=== PATIENT | male | born 1940 | race Caucasian/White ===

== ENCOUNTER 2017-07-12 21:09 | Inpatient (IN) | payer MEDICARE ==
[~2017-07-12] VITALS: Ht 180.3 cm; Wt 104.1 kg
--- NOTE | 2017-07-12 21:19 | PD ---
HPI Chief Complaint: sob Time Seen by Provider: 21:18 Travel History International Travel<30 days: No Contact w/Intl Traveler<30days: No Traveled to known affect area: No History of Present Illness HPI Shortness shortness of breath over the last 2 days, where he was taking his 's penicillin instead of what he thought was Robitussin. Over the last 2 days he has not noted a rash on his body, no hives, no swelling to his lip or tongue. However he has been feeling short of breath, wheezing and a dry cough. No alleviating or aggravating factors. When patient came in was in room air and had a pulse ox of 79% on room air patient was fractured back to her room immediately... Patient believes that the penicillin that he has been taken is what is responsible for his symptoms of shortness of breath. However when I asked the patient if he had any shortness of breath or cough prior to 2 days ago he said yes which was the reason why he was taking or attempting to take Robitussin for. 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, pulmonary hypertension PFSH Social History Tobacco Use: No Allergies-Medications (Allergen,Severity, Reaction): Coded Allergies: penicillin G (Verified Allergy, Severe, Angioedema, 07/12/17) Reported Meds & Prescriptions Reported Meds & Active Scripts Active Reported Flonase Nasal [place] (Fluticasone Nasal [place]) 50 Mcg/Act [place] 50 Mcg EACH NARE BID Aspirin 81 Mg Chew 81 Mg CHEW DAILY Ventolin Hfa 18 GM Inh (Albuterol Sulfate) 90 Mcg/Act Aer 1 Puff INH Q4H PRN Spiriva [place] (Tiotropium Inh) 18 Mcg Cap 18 Mcg INH DAILY 1 capsule = 18 mcg Coreg (Carvedilol) 12.5 Mg Tab 10 Mg PO BID Lipitor (Atorvastatin Calcium) 40 Mg Tab 40 Mg PO HS Plavix (Clopidogrel Bisulfate) 75 Mg Tab 75 Mg PO DAILY Review of Systems General / Constitutional: No: Fever Eyes: No: Visual changes HENT: No: Headaches Cardiovascular: No: Chest Pain or Discomfort Respiratory: Positive: Cough, Shortness of Breath, Wheezing Gastrointestinal: No: Abdominal Pain Genitourinary: No: Dysuria Musculoskeletal: No: Pain Skin: No Rash Neurologic: No: Weakness Psychiatric: No: Depression Endocrine: No: Polydipsia Hematologic/Lymphatic: No: Easy Bruising Physical Exam Narrative GENERAL: SKIN: Warm and dry. HEAD: Atraumatic. Normocephalic. EYES: Pupils equal and round. No scleral icterus. No injection or drainage. ENT: No nasal bleeding or discharge. Mucous membranes pink and moist. NECK: Trachea midline. No JVD. CARDIOVASCULAR: Regular rate and rhythm. RESPIRATORY: No accessory muscle use. Scattered wheezing throughout lung llamas , slightly decreased tidal volume bilaterally GASTROINTESTINAL: Abdomen soft, non-tender, nondistended. MUSCULOSKELETAL: Extremities without clubbing, cyanosis, or edema. No obvious deformities. NEUROLOGICAL: Awake and alert. No obvious cranial nerve deficits. Motor grossly within normal limits. Five out of 5 muscle strength in the arms and legs. Normal speech. PSYCHIATRIC: Appropriate mood and affect; insight and judgment normal. Data Data Last Documented VS Vital Signs Date Time Temp Pulse Resp B/P (MAP) Pulse Ox O2 Delivery O2 Flow Rate FiO2 07/13/17 00:00 97.0 80 15 134/67 (89) 94 07/12/17 23:30 Nasal Cannula 2.00 Orders Orders Electrocardiogram (07/12/17 21:35) B-Type Natriuretic Peptide (07/12/17 21:35) Ckmb (Isoenzyme) Profile (07/12/17 21:35) Complete Blood Count With Diff (07/12/17 21:35) Comprehensive Metabolic Panel (07/12/17 21:35) Prothrombin Time / Inr (Pt) (07/12/17 21:35) Act Partial Throm Time (Ptt) (07/12/17 21:35) Troponin I (07/12/17 21:35) Lipase (07/12/17 21:35) Chest, Single Ap (07/12/17 21:35) Ecg Monitoring (07/12/17 21:35) Bilateral Bp Monitoring (07/12/17 21:35) Iv Access Insert/Monitor (07/12/17 21:35) Oximetry (07/12/17 21:35) Oxygen Administration (07/12/17 21:35) Sodium Chloride 0.9% Flush (Ns Flush) (07/12/17 21:45) Methylprednisolone So Succ Inj (Solumedr (07/12/17 21:45) Albuterol Neb (Albuterol Neb) (07/12/17 21:45) Magnesium Sulfate 1 Gm Premix (Magnesium (07/12/17 21:45) Magnesium (Mg) (07/12/17 21:40) CKMB (07/12/17 21:40) CKMB% (07/12/17 21:40) Azithromycin Inj (Zithromax Inj) (07/12/17 22:45) Admit Order (Ed Use Only) (07/13/17 00:25) Labs Laboratory Tests Test 07/12/17 21:40 White Blood Count 8.3 TH/MM3 Red Blood Count 4.50 MIL/MM3 Hemoglobin 14.4 GM/DL Hematocrit 43.7 % Mean Corpuscular Volume 97.0 FL Mean Corpuscular Hemoglobin 32.0 PG Mean Corpuscular Hemoglobin Concent 33.0 % Red Cell Distribution Width 14.8 % Platelet Count 204 TH/MM3 Mean Platelet Volume 7.2 FL Neutrophils (%) (Auto) 64.1 % Lymphocytes (%) (Auto) 21.4 % Monocytes (%) (Auto) 12.1 % Eosinophils (%) (Auto) 2.0 % Basophils (%) (Auto) 0.4 % Neutrophils # (Auto) 5.3 TH/MM3 Lymphocytes # (Auto) 1.8 TH/MM3 Monocytes # (Auto) 1.0 TH/MM3 Eosinophils # (Auto) 0.2 TH/MM3 Basophils # (Auto) 0.0 TH/MM3 CBC Comment DIFF FINAL Differential Comment Prothrombin Time 10.7 SEC Prothromb Time International Ratio 1.1 RATIO Activated Partial Thromboplast Time 30.5 SEC Blood Urea Nitrogen 13 MG/DL Creatinine 0.87 MG/DL Random Glucose 92 MG/DL Total Protein 7.9 GM/DL Albumin 3.6 GM/DL Calcium Level 9.1 MG/DL Magnesium Level 1.9 MG/DL Alkaline Phosphatase 66 U/L Aspartate Amino Transf (AST/SGOT) 39 U/L Alanine Aminotransferase (ALT/SGPT) 37 U/L Total Bilirubin 0.7 MG/DL Sodium Level 133 MEQ/L Potassium Level 4.6 MEQ/L Chloride Level 95 MEQ/L Carbon Dioxide Level 35.2 MEQ/L Anion Gap 3 MEQ/L Estimat Glomerular Filtration Rate 86 ML/MIN Total Creatine Kinase 301 U/L Creatine Kinase MB 8.3 NG/ML Troponin I LESS THAN 0.02 NG/ML B-Type Natriuretic Peptide 174 PG/ML Lipase 107 U/L MDM Medical Decision Making Medical Screen Exam Complete: Yes Emergency Medical Condition: Yes Medical Record Reviewed: Yes Interpretation(s) EKG shows normal sinus rhythm, 77 bpm, occasional PVC, right bundle branch block pattern, negative SGARBOSSA'S criteria, Additionally on 2 L of patient's pulse ox with an excellent pleth wave now reads 96-98 which is within normal limits, believe that the severely low pulse ox out in triage was secondary to the patient straining himself by walking into triage without his supplemental oxygen. Differential Diagnosis Based on the historical facts the patient is unlikely to be having an allergic reaction, and rather more likely a progressive COPD exacerbation with a possibility of pneumonia or infection. The patient will be treated with Solu- Medrol, albuterol treatments, magnesium IV, and azithromycin IV, and obtain a chest x-ray if it does appear to have an infiltrate the patient will be given some additional antibiotics empirically. Narrative Course No leukocytosis, no anemia, normal platelet count, no left shift Initial ABG shows hypercapnic respiratory failure with respiratory acidosis Electrolytes are all within normal limits, normal kidney liver and pancreatic functions. First set of cardiac enzymes negative Beta natruretic peptide not significant at 174 Negative d-dimer Coagulation profile within normal limits Chest x-ray read as patchy bibasilar infiltrates per radiology report Critical Care Narrative CRITICAL CARE NOTE: With evaluation of the patient, labs, EKG, receipt of radiologic studies, administration of medications, reevaluation the patient and discussion of the patient with the admitting physicians, the total critical care time was [60] minutes. Time to perform other separately billable procedures was not included in the critical care time. Diagnosis Primary Impression: COPD with exacerbation Additional Impression: Hypoxemia Admitting Information Admitting Physician Requests: Fermín Boothe MD July 12, 2017 21:19
[2017-07-12 21:20] VITALS: BP 152/96; PULSE 77; RESP 26; O2SAT 94
[2017-07-12 21:27] VITALS: BP 166/104; PULSE 87; RESP 28; TEMP 98.5; O2SAT 82
[2017-07-12 21:42] VITALS: O2SAT 95
[2017-07-12] MEDS ORDERED: CARV12.5 PO (21:44)
[2017-07-12] MEDS ORDERED: PLAV75TA29 PO (21:44)
[2017-07-12] MEDS ORDERED: VENTAER INH (21:44)
[2017-07-12] MEDS ORDERED: ASPI-516 CHEW (21:44)
[2017-07-12] MEDS ORDERED: FLUT1SPR5 EACH NARE (21:44)
[2017-07-12] MEDS ORDERED: LIPI40TA PO (21:44)
[2017-07-12] MEDS ORDERED: SPIRCAP INH (21:44)
[2017-07-12] MEDS ORDERED: MAGNESIUM SULFATE 1 GM PREMIX 100 ML IV ONE (21:45)
[2017-07-12] MEDS ORDERED: methylPREDNISolone SOD SUCC 125 MG/2 ML VIAL IV PUSH ONE (21:45)
[2017-07-12] MEDS: RESP: ALBUTEROL 2.5 MG/3 ML NEB (SCH) INH (21:45)
[2017-07-12] MEDS ORDERED: SODIUM CHLORIDE 0.9% FLUSH 10 ML FLUSH IVF PRN (21:45)
[2017-07-12 21:53] VITALS: O2SAT 94
[2017-07-12 21:53] LABS: AUTOMATED NEUTROPHIL # 5.3 TH/MM3 (1.8-7.7); BASOPHIL % 0.4 % (0.0-2.0); EOSINOPHIL # 0.2 TH/MM3 (0-0.4); HEMATOCRIT 43.7 % (39.0-51.0); HEMOGLOBIN 14.4 GM/DL (13.0-17.0); LYMPH % 21.4 % (9.0-44.0); LYMPHOCYTE # 1.8 TH/MM3 (1.0-4.8); MEAN PLATELET VOLUME 7.2 FL (7.0-11.0); MONO % 12.1 % (0.0-8.0); NEUT % 64.1 % (16.0-70.0); PLATELET COUNT 204 TH/MM3 (150-450); RED CELL DISTRIBUTION WIDTH 14.8 % (11.6-17.2); WHITE BLOOD COUNT 8.3 TH/MM3 (4.0-11.0)
[2017-07-12 21:59] LABS: CHLORIDE 95 MEQ/L (98-107); SODIUM (NA) 133 MEQ/L (136-145)
[2017-07-12 22:03] LABS: ALBUMIN 3.6 GM/DL (3.4-5.0); BICARBONATE 35.2 MEQ/L (21.0-32.0); BLOOD UREA NITROGEN 13 MG/DL (7-18); CALCIUM 9.1 MG/DL (8.5-10.1); GLUCOSE,RANDOM 92 MG/DL (74-106)
[2017-07-12 22:04] LABS: INTERNATIONAL NORMALIZED RATIO 1.1 RATIO; PROTHROMBIN TIME - PATIENT 10.7 SEC (9.8-11.6)
[2017-07-12 22:06] LABS: ALT (GPT) 37 U/L (12-78); AST (GOT) 39 U/L (15-37); CREATININE 0.87 MG/DL (0.60-1.30); GLOMERULAR FILTRATION RATE 86 ML/MIN (>89)
[2017-07-12 22:07] LABS: MAGNESIUM 1.9 MG/DL (1.5-2.5); TOTAL BILIRUBIN ADULT 0.7 MG/DL (0.2-1.0); TOTAL PROTEIN 7.9 GM/DL (6.4-8.2)
[2017-07-12 22:09] LABS: ALKALINE PHOSPHATASE 66 U/L (45-117)
[2017-07-12 22:11] LABS: TROPONIN I LESS THAN 0.02 NG/ML (0.02-0.05)
[2017-07-12 22:20] VITALS: BP 137/82; PULSE 78; RESP 20; O2SAT 90
--- NOTE | 2017-07-12 22:29 | RADRPT ---
EXAM DATE: 07/12/2017 10:25 PM EDT AGE/SEX: 77 years / Male INDICATIONS: Shortness of breath. CLINICAL DATA: This is the patient's initial encounter. Patient reports that signs and symptoms have been present for 1 day and indicates a pain score of 0/10. MEDICAL/SURGICAL HISTORY: Cardiovascular disease. Chronic obstructive pulmonary disease. None. COMPARISON: No prior [facility] exams available for comparison. FINDINGS: Patchy infiltrates in the lower lungs bilaterally. Consolidation. The heart is normal in size. CONCLUSION: Patchy bibasilar infiltrates. Electronically signed by: Daquan Carrillo MD 07/12/2017 10:27 PM EDT
[2017-07-12] MEDS ORDERED: AZITHROMYCIN INJ 500 MG in SODIUM CHLOR 0.9% 250 ML INJ 250 ML IV ONE (22:45)
[2017-07-12 23:30] VITALS: BP 140/83; PULSE 80; RESP 20; O2SAT 90
[2017-07-13] VITALS (16 sets, daily range): BP systolic 127–142; BP diastolic 64–91; PULSE 60–86; RESP 10–20; TEMP 96.2–99.4; O2SAT 91–96
[2017-07-13] MEDS ORDERED: ACETAMINOPHEN 325 MG TAB PO PRN (00:30)
[2017-07-13] MEDS ORDERED: SENNOSIDES 8.6 MG TAB PO PRN (00:30)
[2017-07-13] MEDS ORDERED: MAGNESIUM HYDROXIDE SUSP 30 ML CUP PO PRN (00:30)
[2017-07-13] MEDS ORDERED: NALOXONE HCL 0.4 MG/ML AMP IV PUSH PRN (00:30)
[2017-07-13] MEDS ORDERED: BISACODYL 10 MG SUPP RECTAL PRN (00:30)
[2017-07-13] MEDS ORDERED: LACTULOSE SYRUP 20 GM/30 ML CUP PO PRN (00:30)
[2017-07-13] MEDS ORDERED: RESP: ALBUTEROL 2.5 MG/IPRATROPIUM 0.5 MG NEB (PRN) NEB ×2 (00:30→07:15)
[2017-07-13] MEDS ORDERED: SODIUM CHLORIDE 0.9% FLUSH 10 ML FLUSH IV FLUSH PRN (00:30)
[2017-07-13] MEDS: ENOXAPARIN SODIUM 40 MG/0.4 ML SYRINGE SQ SCH (01:04)
[2017-07-13] MEDS ORDERED: methylPREDNISolone SOD SUCC 40 MG/1 ML VIAL IV PUSH SCH (07:15)
[2017-07-13] MEDS: RESP: ALBUTEROL 2.5 MG/IPRATROPIUM 0.5 MG NEB (SCH) NEB ×5 (08:13→19:31)
[2017-07-13] MEDS: ASPIRIN 81 MG CHEW TAB CHEW SCH (08:59)
[2017-07-13] MEDS: CLOPIDOGREL 75 MG TAB PO SCH (08:59)
[2017-07-13] MEDS: LEVOFLOXACIN 750 MG TAB PO SCH (08:59)
[2017-07-13] MEDS: SODIUM CHLORIDE 0.9% FLUSH 10 ML FLUSH IV FLUSH SCH ×2 (09:00→21:58)
[2017-07-13] MEDS ORDERED: predniSONE 20 MG TAB PO SCH (09:00)
[2017-07-13] MEDS ORDERED: methylPREDNISolone SOD SUCC 125 MG/2 ML VIAL IV PUSH SCH ×2 (09:00→12:00)
[2017-07-13] MEDS: BUDESONIDE-FORMOTEROL 160/4.5 MCG INHALER INH SCH ×2 (10:15→22:11)
--- NOTE | 2017-07-13 10:16 | HHI.HP ---
HPI Service [facility] Primary Care Physician Non-Staff Admission Diagnosis COPD EXACERBATION WITH HYPOXEMIA Diagnoses: (1) Community acquired bacterial pneumonia (2) Hypoxemia (3) COPD with exacerbation Chief Complaint: Shortness of breath Travel History International Travel<30 Days: No Contact w/Intl Traveler <30 Da: No Traveled to Known Affected Are: No History of Present Illness 77-year-old male with a history of COPD, hypertension presented yesterday to the ED for evaluation of worsening symptom of shortness of breath times couple days associated with cough production's of yellow sputum over the past 2-3 days. However, patient denies any febrile episode. He was recently treated for sinus infection with a course of 5 days of antibiotics about a week ago. Patient was recently also treated for cough with Robitussin. However states he took his penicillin few days ago and may have suffered an allergic reaction to it leading to shortness of breath. Report chest pain with cough and deep inspiration. When patient initially presented to the ED, he was hypoxemic and placed on 2 L nasal cannula. Currently, patient is on 3 L of oxygen. Patient reports a previous history of tobacco, and quit 5 years ago. However he still smokes 1-2 cigars per day. He denies any GI bleed. Review of Systems Except as stated in HPI: all other systems reviewed are Neg Past Family Social History Past Medical History Coronary artery disease Obstructive sleep apnea COPD Hyperlipidemia Past Surgical History No previous surgery Reported Medications See EMR Allergies: Coded Allergies: penicillin G (Verified Allergy, Severe, Angioedema, 07/12/17) Family History Father from complication of lung and liver cancer Mother had CVA Social History Denies alcohol, illicit drug . Smokes 1-2 cigars per day Physical Exam Vital Signs Vital Signs Date Time Temp Pulse Resp B/P (MAP) Pulse Ox O2 Delivery O2 Flow Rate FiO2 07/13/17 08:17 94 Nasal Cannula 3.00 07/13/17 07:54 96.2 81 20 128/79 (95) 95 07/13/17 01:27 76 16 138/78 (98) 93 Nasal Cannula 4.00 5/25/18 00:30 72 18 139/91 (107) 91 Room Air 3.00 07/13/17 00:00 97.0 80 15 134/67 (89) 94 07/12/17 23:30 80 20 140/83 (102) 90 Nasal Cannula 2.00 07/12/17 22:20 78 20 137/82 (100) 90 07/12/17 21:53 94 Nasal Cannula 2.00 07/12/17 21:53 94 Nasal Cannula 2.00 07/12/17 21:42 95 Nasal Cannula 2.00 07/12/17 21:27 98.5 87 28 166/104 (124) 82 07/12/17 21:20 28 82 Room Air 07/12/17 21:20 77 26 152/96 (114) 94 Nasal Cannula 2.00 Physical Exam GENERAL: This is a well-nourished, well-developed patient, in no apparent distress. SKIN: No rashes, ecchymoses or lesions. Cool and dry. HEAD: Atraumatic. Normocephalic. No temporal or scalp tenderness. EYES: Pupils equal round and reactive. Extraocular motions intact. No scleral icterus. No injection or drainage. ENT: Nose without bleeding, purulent drainage or septal hematoma. Throat without erythema, tonsillar hypertrophy or exudate. Uvula midline. Airway patent. NECK: Trachea midline. No JVD or lymphadenopathy. Supple, nontender, no meningeal signs. CARDIOVASCULAR: Regular rate and rhythm without murmurs, gallops, or rubs. RESPIRATORY: Clear to auscultation. Breath sounds decrease bilaterally. No wheezes, rales, or rhonchi. GASTROINTESTINAL: Abdomen soft, non-tender, nondistended. No hepato-splenomegaly , or palpable masses. No guarding. MUSCULOSKELETAL: Extremities without clubbing, cyanosis, or edema. No joint tenderness, effusion, or edema noted. No calf tenderness. Negative Homans sign bilaterally. NEUROLOGICAL: Awake and alert. Cranial nerves II through XII intact. Motor and sensory grossly within normal limits. Five out of 5 muscle strength in all muscle groups. Normal speech. Laboratory Laboratory Tests Test 07/12/17 21:40 07/13/17 07:45 White Blood Count 8.3 Red Blood Count 4.50 Hemoglobin 14.4 Hematocrit 43.7 Mean Corpuscular Volume 97.0 Mean Corpuscular Hemoglobin 32.0 Mean Corpuscular Hemoglobin Concent 33.0 Red Cell Distribution Width 14.8 Platelet Count 204 Mean Platelet Volume 7.2 Neutrophils (%) (Auto) 64.1 Lymphocytes (%) (Auto) 21.4 Monocytes (%) (Auto) 12.1 Eosinophils (%) (Auto) 2.0 Basophils (%) (Auto) 0.4 Neutrophils # (Auto) 5.3 Lymphocytes # (Auto) 1.8 Monocytes # (Auto) 1.0 Eosinophils # (Auto) 0.2 Basophils # (Auto) 0.0 CBC Comment DIFF FINAL Differential Comment Prothrombin Time 10.7 Prothromb Time International Ratio 1.1 Activated Partial Thromboplast Time 30.5 Blood Urea Nitrogen 13 Creatinine 0.87 Random Glucose 92 Total Protein 7.9 Albumin 3.6 Calcium Level 9.1 Magnesium Level 1.9 Alkaline Phosphatase 66 Aspartate Amino Transf (AST/SGOT) 39 Alanine Aminotransferase (ALT/SGPT) 37 Total Bilirubin 0.7 Sodium Level 133 Potassium Level 4.6 Chloride Level 95 Carbon Dioxide Level 35.2 Anion Gap 3 Estimat Glomerular Filtration Rate 86 Total Creatine Kinase 301 Creatine Kinase MB 8.3 Troponin I LESS THAN 0.02 B-Type Natriuretic Peptide 174 Lipase 107 D-Dimer Quantitative (PE/DVT) 0.33 Result Diagram: 07/12/17213907/12/172139 Imaging Last Impressions Chest X-Ray 07/12/172134 Signed Impressions: CONCLUSION: Patchy bibasilar infiltrates. Septic Shock Reassessment Septic shock perfusion: reassessment completed Caprini VTE Risk Assessment Caprini VTE Risk Assessment: Mod/High Risk (score >= 2) Caprini Risk Assessment Model Point Value = 1 Point Value = 2 Point Value = 3 Point Value = 5 Age 41-60 Minor surgery BMI > 25 kg/m2 Swollen legs Varicose veins or History of unexplained or recurrent spontaneous Oral contraceptives or hormone replacement Sepsis (< 1 month) Serious lung disease, including pneumonia (< 1 month) Abnormal pulmonary function Acute myocardial infarction Congestive heart failure (< 1 month) History of inflammatory bowel disease Medical patient at bed rest Age 61-74 Arthroscopic surgery Major open surgery (> 45 min) Laparoscopic surgery (> 45 min) Malignancy Confined to bed (> 72 hours) Immobilizing plaster cast Central venous access Age >= 75 History of VTE Family history of VTE Factor V Leiden Prothrombin [id number] Lupus anticoagulant Anticardiolipin antibodies Elevated serum homocysteine Heparin-induced thrombocytopenia Other congenital or acquired thrombophilia Stroke (< 1 month) Elective arthroplasty Hip, pelvis, or leg fracture Acute spinal cord injury (< 1 month) Prophylaxis Regimen Total Risk Factor Score Risk Level Prophylaxis Regimen 0-1 Low Early ambulation 2 Moderate Order ONE of the following: *Sequential Compression Device (SCD) *Heparin 5000 units SQ BID 3-4 Higher Order ONE of the following medications: *Heparin 5000 units SQ TID *Enoxaparin/Lovenox 40 mg SQ daily (WT < 150 kg, CrCl > 30 mL/min) *Enoxaparin/Lovenox 30 mg SQ daily (WT < 150 kg, CrCl > 10-29 mL/min) *Enoxaparin/Lovenox 30 mg SQ BID (WT < 150 kg, CrCl > 30 mL/min) AND/OR *Sequential Compression Device (SCD) 5 or more Highest Order ONE of the following medications: *Heparin 5000 units SQ TID (Preferred with Epidurals) *Enoxaparin/Lovenox 40 mg SQ daily (WT < 150 kg, CrCl > 30 mL/min) *Enoxaparin/Lovenox 30 mg SQ daily (WT < 150 kg, CrCl > 10-29 mL/min) *Enoxaparin/Lovenox 30 mg SQ BID (WT < 150 kg, CrCl > 30 mL/min) AND *Sequential Compression Device (SCD) Assessment and Plan Assessment and Plan 77-year-old man with COPD exacerbation with hypoxemia, with respiratory failure Chest x-ray noted and reviewed by me with finding of patchy infiltrate Currently on Solu-Medrol, bronchodilator,Symbicort and add Spiriva, Levaquin Maintain oxygen saturation above 88%-92% ABG obtained with CO2 retention CO2 narcosis Start BiPAP Transfer patient to ICU Community-acquired bacterial pneumonia Continue with Levaquin 750 mg daily 7 days Chronic history of CAD/hypertension/hyperlipidemia and other medical conditions Continue outpatient medications DVT prophylaxis: Bilateral SCDs Jimi Alexander MD July 13, 2017 10:15
[2017-07-13] MEDS: TIOTROPIUM BROMIDE 18 MCG INH INH SCH (11:12)
[2017-07-13] MEDS: methylPREDNISolone SOD SUCC 40 MG/1 ML VIAL IV PUSH SCH ×2 (15:00→21:59)
--- NOTE | 2017-07-13 18:08 | EKG ---
Date Performed: 07/12/2017 Time Performed: 21:21:51 PTAGE: 77 years EKG: Sinus rhythm WITH OCCASIONAL VENTRICULAR PREMATURE COMPLEXES INDETERMINATE AXIS RIGHT BUNDLE BRANCH BLOCK ABNORMA L ECG NO PREVIOUS TRACING DOCTOR: Haritha Delgado Interpretating Date/Time 07/13/2017 17:59:58
[2017-07-13] MEDS: ATORVASTATIN 40 MG TAB PO SCH (21:58)
[2017-07-13] MEDS: guaiFENesin E.R. 600 MG TAB PO SCH (22:06)
[2017-07-14] VITALS (20 sets, daily range): BP systolic 98–140; BP diastolic 52–97; PULSE 66–94; RESP 13–29; TEMP 97.3–99.1; O2SAT 90–96
[2017-07-14] MEDS: ENOXAPARIN SODIUM 40 MG/0.4 ML SYRINGE SQ SCH (01:07)
[2017-07-14] MEDS: methylPREDNISolone SOD SUCC 40 MG/1 ML VIAL IV PUSH SCH ×3 (03:37→17:51)
[2017-07-14 06:06] LABS: AUTOMATED NEUTROPHIL # 7.2 TH/MM3 (1.8-7.7); BASOPHIL % 0.4 % (0.0-2.0); EOSINOPHIL % 0.1 % (0.0-4.0); HEMOGLOBIN 14.6 GM/DL (13.0-17.0); LYMPH % 7.3 % (9.0-44.0); LYMPHOCYTE # 0.6 TH/MM3 (1.0-4.8); MEAN CELL VOLUME 98.5 FL (80.0-100.0); MEAN CORPUSCULAR HEMOGLOBIN 31.3 PG (27.0-34.0); MEAN CORPUSCULAR HGB CONC 31.7 % (32.0-36.0); MEAN PLATELET VOLUME 6.8 FL (7.0-11.0); MONO % 8.4 % (0.0-8.0); MONOCYTE # 0.7 TH/MM3 (0-0.9); NEUT % 83.8 % (16.0-70.0); PLATELET COUNT 225 TH/MM3 (150-450); RED BLOOD COUNT 4.67 MIL/MM3 (4.50-5.90); RED CELL DISTRIBUTION WIDTH 14.4 % (11.6-17.2); WHITE BLOOD COUNT 8.5 TH/MM3 (4.0-11.0)
[2017-07-14 06:17] LABS: BICARBONATE 39.4 MEQ/L (21.0-32.0); CALCIUM 9.7 MG/DL (8.5-10.1)
[2017-07-14 06:21] LABS: CREATININE 0.79 MG/DL (0.60-1.30)
[2017-07-14] MEDS: RESP: ALBUTEROL 2.5 MG/IPRATROPIUM 0.5 MG NEB (SCH) NEB ×4 (07:35→19:34)
[2017-07-14] MEDS: TIOTROPIUM BROMIDE 18 MCG INH INH SCH (08:32)
[2017-07-14] MEDS: BUDESONIDE-FORMOTEROL 160/4.5 MCG INHALER INH SCH ×2 (08:32→19:50)
[2017-07-14] MEDS: CLOPIDOGREL 75 MG TAB PO SCH (08:34)
[2017-07-14] MEDS: ASPIRIN 81 MG CHEW TAB CHEW SCH (08:35)
[2017-07-14] MEDS: guaiFENesin E.R. 600 MG TAB PO SCH ×2 (08:35→19:47)
[2017-07-14] MEDS: LEVOFLOXACIN 750 MG TAB PO SCH (08:35)
[2017-07-14] MEDS: SODIUM CHLORIDE 0.9% FLUSH 10 ML FLUSH IV FLUSH SCH ×2 (08:36→19:47)
--- NOTE | 2017-07-14 10:02 | HHI.PR ---
Subjective Remarks Follow-up COPD exacerbation with hypercapnic respiratory failure July 14, 2017-patient seen and examined, reported improvement of shortness of breath. Patient used BiPAP overnight. ABG improving this morning. Daughter by the bedside and states her diet is doing much better. Objective Vitals Vital Signs Date Time Temp Pulse Resp B/P (MAP) Pulse Ox O2 Delivery O2 Flow Rate FiO2 07/14/17 07:55 98.4 134/71 (92) 07/14/17 04:05 94 50 07/14/17 04:00 97.4 74 19 125/69 (87) 93 07/14/17 03:41 78 13 117/73 (88) 94 07/14/17 01:00 95 50 07/14/17 00:06 97.3 78 13 140/72 (94) 92 07/13/17 23:25 92 45 07/13/17 23:00 81 07/13/17 22:12 86 20 127/64 (85) 91 07/13/17 21:40 93 Nasal Cannula 3.00 07/13/17 21:35 93 25 07/13/17 20:00 74 10 142/86 (104) 92 07/13/17 20:00 80 07/13/17 19:52 99.4 60 140/85 (103) 96 07/13/17 19:32 94 25 07/13/17 15:39 96.8 75 20 130/76 (94) 95 07/13/17 15:30 92 25 07/13/17 11:32 97.0 77 20 137/78 (97) 95 I/O 07/13/17 07/13/17 07/13/17 07/14/17 07/14/17 07/14/17 07:00 15:00 23:00 07:00 15:00 23:00 Intake Total 350 ml 240 ml 840 ml 600 ml Output Total 5 ml 1075 ml 300 ml Balance 350 ml 240 ml 835 ml -1075 ml 300 ml Intake Oral 240 ml 840 ml 600 ml IV Total 350 ml Output Urine Total 5 ml 1075 ml 300 ml # Voids 1 1 Result Diagram: 07/14/17 0542 07/14/17 0542 Imaging Last Impressions Chest X-Ray 07/12/172134 Signed Impressions: CONCLUSION: Patchy bibasilar infiltrates. Objective Remarks GENERAL: NAD SKIN: Warm and dry. HEAD: Normocephalic. EYES: No scleral icterus. No injection or drainage. NECK: Supple, trachea midline. No JVD or lymphadenopathy. CARDIOVASCULAR: Regular rate and rhythm without murmurs, gallops, or rubs. RESPIRATORY: Breath sounds equal bilaterally. No accessory muscle use. GASTROINTESTINAL: Abdomen soft, non-tender, nondistended. MUSCULOSKELETAL: No cyanosis, or edema. BACK: Nontender without obvious deformity. No CVA tenderness. A/P Problem List: (1) Community acquired bacterial pneumonia ICD Code: J15.9 - Unspecified bacterial pneumonia (2) Hypoxemia ICD Code: R09.02 - Hypoxemia (3) COPD with exacerbation ICD Code: J44.1 - Chronic obstructive pulmonary disease with (acute) exacerbation (4) Hypercapnic respiratory failure ICD Code: J96.92 - Respiratory failure, unspecified with hypercapnia Assessment and Plan 77-year-old man with COPD exacerbation with hypercapnic respiratory failure Chest x-ray with finding of patchy infiltrate Currently on Solu-Medrol, bronchodilator and decreased to 40 mg every 8 hour , continue Symbicort and Spiriva, Levaquin Maintain oxygen saturation above 88%-92% Continue with BiPAP at bedtime CO2 narcosis Improvement with BiPAP at bedtime Repeat ABG in a.m. Community-acquired bacterial pneumonia Continue with Levaquin 750 mg daily 7 days Chronic history of CAD/hypertension/hyperlipidemia and other medical conditions Continue outpatient medications DVT prophylaxis: Bilateral SCDs Transfer to Jimi Escobedo MD July 14, 2017 10:02
[2017-07-14 16:44] LABS: BILIRUBIN, URINE NEG (NEG); BLOOD, URINE SMALL (NEG); GLUCOSE,URINE NEG (NEG); KETONE, URINE NEG (NEG); NITRITE,URINE NEG (NEG); URINE COLOR YELLOW (YELLW/STRAW); URINE LEUKOCYTE ESTERASE NEG (NEG)
[2017-07-14 17:23] LABS: SQUAMOUS EPITHELIAL CELL URINE 0-1 /hpf (0-5); WBC, URINE 0-2 /hpf (0-5)
[2017-07-14] MEDS: ATORVASTATIN 40 MG TAB PO SCH (19:47)
[2017-07-14] MEDS ORDERED: ALPRAZolam 0.5 MG TAB PO ONE (20:15)
[2017-07-15] VITALS (28 sets, daily range): BP systolic 91–131; BP diastolic 54–76; PULSE 64–86; RESP 11–32; TEMP 97.6–98.4; O2SAT 75–96
[2017-07-15] MEDS: ENOXAPARIN SODIUM 40 MG/0.4 ML SYRINGE SQ SCH (00:14)
[2017-07-15] MEDS: methylPREDNISolone SOD SUCC 40 MG/1 ML VIAL IV PUSH SCH ×4 (00:14→23:59)
[2017-07-15 06:03] LABS: AUTOMATED NEUTROPHIL # 8.5 TH/MM3 (1.8-7.7); BASOPHIL # 0.1 TH/MM3 (0-0.2); BASOPHIL % 0.7 % (0.0-2.0); EOSINOPHIL % 0.1 % (0.0-4.0); HEMATOCRIT 45.2 % (39.0-51.0); HEMOGLOBIN 14.4 GM/DL (13.0-17.0); LYMPHOCYTE # 0.6 TH/MM3 (1.0-4.8); MEAN CELL VOLUME 98.5 FL (80.0-100.0); MEAN CORPUSCULAR HEMOGLOBIN 31.5 PG (27.0-34.0); MEAN PLATELET VOLUME 6.7 FL (7.0-11.0); MONO % 5.2 % (0.0-8.0); MONOCYTE # 0.5 TH/MM3 (0-0.9); PLATELET COUNT 233 TH/MM3 (150-450); RED BLOOD COUNT 4.59 MIL/MM3 (4.50-5.90); RED CELL DISTRIBUTION WIDTH 13.9 % (11.6-17.2); WHITE BLOOD COUNT 9.7 TH/MM3 (4.0-11.0)
[2017-07-15 06:13] LABS: CALCIUM 9.4 MG/DL (8.5-10.1)
[2017-07-15 06:14] LABS: BICARBONATE 42.5 MEQ/L (21.0-32.0)
[2017-07-15] MEDS ORDERED: LORazepam 2 MG/ML VIAL IV PUSH ONE (06:15)
[2017-07-15 06:17] LABS: CREATININE 0.78 MG/DL (0.60-1.30)
[2017-07-15] MEDS: RESP: ALBUTEROL 2.5 MG/IPRATROPIUM 0.5 MG NEB (SCH) NEB ×4 (07:39→20:08)
[2017-07-15] MEDS: SODIUM CHLORIDE 0.9% FLUSH 10 ML FLUSH IV FLUSH SCH ×2 (08:56→19:29)
[2017-07-15] MEDS: guaiFENesin E.R. 600 MG TAB PO SCH ×2 (10:13→19:28)
[2017-07-15] MEDS: TIOTROPIUM BROMIDE 18 MCG INH INH SCH (10:13)
[2017-07-15] MEDS: BUDESONIDE-FORMOTEROL 160/4.5 MCG INHALER INH SCH ×2 (10:13→19:29)
[2017-07-15] MEDS: LEVOFLOXACIN 750 MG TAB PO SCH (10:13)
[2017-07-15] MEDS: ASPIRIN 81 MG CHEW TAB CHEW SCH (10:13)
[2017-07-15] MEDS: CLOPIDOGREL 75 MG TAB PO SCH (10:13)
--- NOTE | 2017-07-15 10:29 | HHI.PR ---
Subjective Remarks Follow-up COPD exacerbation with hypercapnic respiratory failure July 14, 2017-patient seen and examined, reported improvement of shortness of breath. Patient used BiPAP overnight. ABG improving this morning. Daughter by the bedside and states her diet is doing much better. July 15, 2017-patient seen and examined, requiring BiPAP however FiO2 increased to 30. Daughter by the bedside. Patient currently afebrile Objective Vitals Vital Signs Date Time Temp Pulse Resp B/P (MAP) Pulse Ox O2 Delivery O2 Flow Rate FiO2 07/15/17 09:00 70 13 115/65 (82) 93 07/15/17 09:00 70 07/15/17 08:15 88 30 07/15/17 08:00 97.7 70 17 93/54 (67) 88 07/15/17 08:00 70 07/15/17 08:00 92 Bi-Pap 30 07/15/17 07:19 91 25 07/15/17 07:00 92 Bi-Pap 25 07/15/17 06:05 95 25 07/15/17 06:00 92 Bi-Pap 25 07/15/17 04:00 68 07/15/17 04:00 97.7 68 24 107/74 (85) 91 07/15/17 03:52 92 Simple Mask 6.00 07/15/17 03:28 95 Simple Mask 10.00 07/15/17 02:33 95 Nasal Cannula 4.00 07/15/17 02:30 85 Nasal Cannula 4.00 07/15/17 01:05 95 50 07/15/17 00:00 80 07/15/17 00:00 97.6 80 22 131/65 (87) 94 07/14/17 22:00 Bi-Pap 50 07/14/17 22:00 94 50 07/14/17 20:00 74 07/14/17 20:00 98.6 74 22 121/63 (82) 91 07/14/17 19:35 94 Nasal Cannula 3.00 07/14/17 19:00 Nasal Cannula 4.00 07/14/17 16:00 99.1 106/59 (75) 07/14/17 15:25 96 Nasal Cannula 3.00 07/14/17 15:00 68 07/14/17 14:09 76 28 112/56 (74) 93 07/14/17 13:00 72 17 107/52 (70) 92 07/14/17 12:00 72 23 110/54 (72) 96 07/14/17 12:00 98.4 134/71 (92) 07/14/17 11:00 66 29 98/65 (76) 94 I/O 07/14/17 07/14/17 07/14/17 07/15/17 07/15/17 07/15/17 07:00 15:00 23:00 07:00 15:00 23:00 Intake Total 600 ml 900 ml Output Total 1075 ml 300 ml 1500 ml 750 ml Balance -1075 ml 300 ml -600 ml -750 ml Intake Oral 600 ml 900 ml Output Urine Total 1075 ml 300 ml 1500 ml 750 ml # Bowel Movements 0 Result Diagram: 07/15/17 0532 07/15/17 0532 Imaging Last Impressions Chest X-Ray 07/12/172134 Signed Impressions: CONCLUSION: Patchy bibasilar infiltrates. Objective Remarks GENERAL: NAD SKIN: Warm and dry. HEAD: Normocephalic. EYES: No scleral icterus. No injection or drainage. NECK: Supple, trachea midline. No JVD or lymphadenopathy. CARDIOVASCULAR: Regular rate and rhythm without murmurs, gallops, or rubs. RESPIRATORY: Breath sounds equal bilaterally. No accessory muscle use. GASTROINTESTINAL: Abdomen soft, non-tender, nondistended. MUSCULOSKELETAL: No cyanosis, or edema. BACK: Nontender without obvious deformity. No CVA tenderness. A/P Problem List: (1) Community acquired bacterial pneumonia ICD Code: J15.9 - Unspecified bacterial pneumonia (2) Hypoxemia ICD Code: R09.02 - Hypoxemia (3) COPD with exacerbation ICD Code: J44.1 - Chronic obstructive pulmonary disease with (acute) exacerbation (4) Hypercapnic respiratory failure ICD Code: J96.92 - Respiratory failure, unspecified with hypercapnia Assessment and Plan 77-year-old man with COPD exacerbation with hypercapnic/hypoxic respiratory failure Chest x-ray with finding of patchy infiltrate Currently on Solu-Medrol 40 mg every 8 hour, bronchodilator ,Symbicort and Spiriva, Levaquin Maintain oxygen saturation above 88%-92% Continue with BiPAP at bedtime Consult pulmonary medicine Community-acquired bacterial pneumonia Continue with Levaquin 750 mg daily 7 days total Chronic history of CAD/hypertension/hyperlipidemia and other medical conditions Continue outpatient medications DVT prophylaxis: Bilateral SCDs Jimi Alexander MD July 15, 2017 10:29
[2017-07-15] MEDS ORDERED: DOCUSATE SODIUM 50 MG/SENNA 8.6 MG TAB PO PRN (10:45)
--- NOTE | 2017-07-15 18:34 | MB ---
cc: Joanna Law MD DATE: 07/15/2017 REASON FOR CONSULTATION: COPD and respiratory failure. HISTORY OF PRESENT ILLNESS: This is a 77-year-old white male with a longstanding history of COPD with home oxygen and history of obstructive sleep apnea, as well as a history for coronary artery disease, was admitted through the emergency room with shortness of breath of 2-3 days' duration. The patient is from [place]. He has home oxygen. He has a nebulizer at home and a CPAP machine, but upon arrival, he complained of cough with yellow expectoration and sinus drainage and, thus, was seen in the ER and admitted to the intensive care unit. Initial blood gases demonstrated hypercapnia with hypoxemia. The patient was placed on a BiPAP mask and his blood gases were repeated this morning, which showed a pCO2 of 106, pO2 of 82, pH of 7.23, on 3 liters of oxygen. The patient is presently alert, talking, eating dinner and states his shortness of breath has improved. He is still coughing up some thick yellowish mucus, but denied fevers or chills. Denied nausea, vomiting, but has had some leg swelling. PAST MEDICAL HISTORY: Includes history of coronary artery disease, history of COPD with emphysema and history for obstructive sleep apnea and hyperlipidemia. PAST SURGICAL HISTORY: Denies surgery. ALLERGIES: PENICILLIN. FAMILY HISTORY: Significant for lung cancer in his father. HABITS: The patient smokes 1-2 cigars presently, but in the past was smoking 1-2 packs of cigarettes for more than 40 years. Alcohol use, occasional. MEDICATIONS: List was reviewed from the chart, which included Symbicort, Solu-Medrol, Levaquin and DuoNeb solution with a nebulizer, as well as Spiriva. REVIEW OF SYSTEMS: The patient has gained weight. He has leg swelling. Complains of sinus drainage. He has wheezing and orthopnea. There is some epigastric distress and reflux. Denies nausea and denies urinary symptoms and has had no skin lesions. PHYSICAL EXAMINATION: GENERAL: This averagely built, elderly man who is alert and anxious. Face was flushed. VITAL SIGNS: His blood pressure is 140/80, pulse is 85, respirations 20, temperature 97.2. HEENT: Head is normocephalic. Pupils are reactive and equal. Tongue is moist. Throat is injected. Nasal mucosa edematous. NECK: Supple. No bruits. Mild venous distention at 45 degrees. Trachea midline. No thyroid enlargement. CHEST: Equal movements with distant breath sounds, with expiratory wheezes bilaterally and a few basilar crackles. HEART: Sounds are regular, S1, S2, with no murmur. No S3 gallop. ABDOMEN: Soft, obese, without masses. No organomegaly or tenderness. Bowel sounds are active. EXTREMITIES: No lesions, but there is 2+ edema, with decreased peripheral pulses. Reflexes are 1+, with no gross motor deficits and cranial nerves are grossly intact. There is no clubbing of the extremities and no calf tenderness. SKIN: Slightly pigmented in the lower extremities. IMPRESSION: 1. Acute on chronic respiratory failure. 2. Hypercapnia with hypoxemia. 3. Chronic obstructive pulmonary disease, with severe emphysema. 4. Cor pulmonale. 5. Obstructive sleep apnea syndrome. 6. Hyperlipidemia. 7. Nicotine dependency. PLAN: The patient was advised to quit cigar smoking. A nicotine patch will be used if necessary. Nebulized DuoNeb solution continued at q. 4 hours. Sputum sent for Gram stain and culture. Continue with Levaquin 500 mg p.o. daily for 10 days and Solu-Medrol 40 mg IV every 8 hours. We will add Theophylline 200 mg daily and use BiPAP at bedtime at 15/5 and 30% FiO2 and nasal cannula O2 at 3 liters during the day. The patient will be given prophylactic Lovenox and also Lasix 20 mg p.o. daily was added. Thank you, Dr. Alexander, for this consultation. MD ELLEN Culver/BRITTON , 05:49 PM , 06:33 PM
[2017-07-15] MEDS: ATORVASTATIN 40 MG TAB PO SCH (19:29)
[2017-07-16] VITALS (37 sets, daily range): BP systolic 99–128; BP diastolic 57–97; PULSE 60–88; RESP 0–44; TEMP 97.6–99.2; O2SAT 30–98
[2017-07-16] MEDS: ENOXAPARIN SODIUM 40 MG/0.4 ML SYRINGE SQ SCH
[2017-07-16] MEDS: LORazepam 2 MG/ML VIAL IV PUSH PRN ×2 (01:35→21:56)
[2017-07-16] MEDS: RESP: ALBUTEROL 2.5 MG/IPRATROPIUM 0.5 MG NEB (SCH) NEB ×4 (07:43→20:20)
[2017-07-16] MEDS: ASPIRIN 81 MG CHEW TAB CHEW SCH (08:50)
[2017-07-16] MEDS: guaiFENesin E.R. 600 MG TAB PO SCH ×2 (08:50→20:24)
[2017-07-16] MEDS: CLOPIDOGREL 75 MG TAB PO SCH (08:52)
[2017-07-16] MEDS: THEOPHYLLINE 200 MG EXTENDED RELEASE CAP PO SCH (08:52)
[2017-07-16] MEDS: LEVOFLOXACIN 750 MG TAB PO SCH (08:52)
[2017-07-16] MEDS: FUROSEMIDE 20 MG TAB PO SCH (08:52)
[2017-07-16] MEDS: methylPREDNISolone SOD SUCC 40 MG/1 ML VIAL IV PUSH SCH ×2 (08:54→17:09)
[2017-07-16] MEDS: BUDESONIDE-FORMOTEROL 160/4.5 MCG INHALER INH SCH ×2 (08:55→20:24)
[2017-07-16] MEDS: TIOTROPIUM BROMIDE 18 MCG INH INH SCH (09:00)
[2017-07-16] MEDS: SODIUM CHLORIDE 0.9% FLUSH 10 ML FLUSH IV FLUSH SCH ×2 (09:21→21:56)
--- NOTE | 2017-07-16 10:45 | HHI.PR ---
Subjective Remarks Follow-up COPD exacerbation with hypercapnic respiratory failure July 14, 2017-patient seen and examined, reported improvement of shortness of breath. Patient used BiPAP overnight. ABG improving this morning. Daughter by the bedside and states her diet is doing much better. July 15, 2017-patient seen and examined, requiring BiPAP however FiO2 increased to 30. Daughter by the bedside. Patient currently afebrile July 16, 2017-patient seen and examined, did use BiPAP at night. Some improvement of shortness of breath. Patient was seen yesterday by pulmonary medicine. Objective Vitals Vital Signs Date Time Temp Pulse Resp B/P (MAP) Pulse Ox O2 Delivery O2 Flow Rate FiO2 07/16/17 10:10 30 30 07/16/17 07:46 96 Nasal Cannula 4.00 07/16/17 06:01 72 16 117/68 (84) 92 07/16/17 05:01 64 21 114/64 (81) 92 07/16/17 04:01 97.6 80 128/97 (107) 07/16/17 04:00 74 07/16/17 03:30 92 30 07/16/17 03:01 72 26 108/59 (75) 90 07/16/17 02:01 72 20 99/64 (76) 93 07/16/17 01:01 64 17 99/77 (84) 96 07/16/17 00:01 97.9 60 13 103/60 (74) 97 07/16/17 00:00 68 07/15/17 23:35 94 30 07/15/17 23:01 64 22 110/62 (78) 95 07/15/17 22:01 70 15 109/64 (79) 96 07/15/17 21:01 74 29 105/74 (84) 92 07/15/17 20:10 95 30 07/15/17 20:01 97.6 72 32 111/67 (82) 93 07/15/17 20:00 94 Bi-Pap 30 07/15/17 20:00 72 07/15/17 19:01 78 27 117/67 (84) 91 07/15/17 19:00 94 Nasal Cannula 4.00 07/15/17 18:00 86 31 97/55 (69) 94 07/15/17 17:00 92 Nasal Cannula 3.00 07/15/17 17:00 74 13 104/67 (79) 94 07/15/17 16:00 98.4 76 17 109/62 (78) 92 07/15/17 16:00 76 07/15/17 15:00 74 16 98/67 (77) 93 07/15/17 14:00 84 15 111/64 (80) 95 07/15/17 13:50 92 30 07/15/17 13:00 86 25 110/74 (86) 95 07/15/17 12:00 78 07/15/17 12:00 78 07/15/17 12:00 78 27 94/72 (79) 75 07/15/17 11:12 93 30 07/15/17 11:00 78 07/15/17 11:00 78 21 110/76 (87) 93 I/O 07/15/17 07/15/17 07/15/17 07/16/17 07/16/17 07/16/17 07:00 15:00 23:00 07:00 15:00 23:00 Intake Total 720 ml Output Total 750 ml 1575 ml 700 ml 450 ml Balance -750 ml -855 ml -700 ml -450 ml Intake Oral 720 ml Output Urine Total 750 ml 1575 ml 700 ml 450 ml # Bowel Movements 0 1 Result Diagram: 07/15/17 0532 07/15/17 0532 Imaging Last Impressions Chest X-Ray 07/12/172134 Signed Impressions: CONCLUSION: Patchy bibasilar infiltrates. Objective Remarks GENERAL: NAD SKIN: Warm and dry. HEAD: Normocephalic. EYES: No scleral icterus. No injection or drainage. NECK: Supple, trachea midline. No JVD or lymphadenopathy. CARDIOVASCULAR: Regular rate and rhythm without murmurs, gallops, or rubs. RESPIRATORY: Breath sounds equal bilaterally. No accessory muscle use. GASTROINTESTINAL: Abdomen soft, non-tender, nondistended. MUSCULOSKELETAL: No cyanosis, or edema. BACK: Nontender without obvious deformity. No CVA tenderness. A/P Problem List: (1) Community acquired bacterial pneumonia ICD Code: J15.9 - Unspecified bacterial pneumonia (2) Hypoxemia ICD Code: R09.02 - Hypoxemia (3) COPD with exacerbation ICD Code: J44.1 - Chronic obstructive pulmonary disease with (acute) exacerbation (4) Hypercapnic respiratory failure ICD Code: J96.92 - Respiratory failure, unspecified with hypercapnia Assessment and Plan 77-year-old man with COPD exacerbation with hypercapnic/hypoxic respiratory failure Chest x-ray with finding of patchy infiltrate Currently on Solu-Medrol 40 mg every 8 hour, bronchodilator ,Symbicort and Spiriva, Levaquin as well as theophylline 200 mg daily Maintain oxygen saturation above 88%-92% Continue with BiPAP at bedtime Appreciate input from pulmonary medicine Add Acapella Check ABGs in a.m. Community-acquired bacterial pneumonia Continue with Levaquin 750 mg daily 7 days total Chronic history of CAD/hypertension/hyperlipidemia and other medical conditions Continue outpatient medications DVT prophylaxis: Bilateral SCDs Jimi Alexander MD July 16, 2017 10:45
--- NOTE | 2017-07-16 16:51 | HHI.PR ---
Subjective Remarks He is better. Has some confusion in am. Leg edema is less. Using BIPAP at HS Objective Vital Signs Date Time Temp Pulse Resp B/P (MAP) Pulse Ox O2 Delivery O2 Flow Rate FiO2 07/16/17 16:00 80 0 98 07/16/17 16:00 68 07/16/17 15:45 68 0 97 07/16/17 14:45 93 07/16/17 14:30 94 07/16/17 14:15 72 28 96 07/16/17 14:00 97.7 78 23 104/60 (75) 94 07/16/17 14:00 78 23 104/60 (75) 94 07/16/17 13:00 80 26 122/61 (81) 93 07/16/17 13:00 80 26 122/61 (81) 93 07/16/17 12:00 88 44 122/80 (94) 92 07/16/17 12:00 70 07/16/17 12:00 88 44 122/80 (94) 92 07/16/17 11:50 95 Nasal Cannula 4.00 07/16/17 11:42 72 24 105/67 (80) 91 07/16/17 11:01 66 24 96 07/16/17 11:00 97 07/16/17 10:15 Bi-Pap 30.00 07/16/17 10:10 30 30 07/16/17 10:01 78 25 96 07/16/17 10:00 96 Nasal Cannula 4.00 07/16/17 09:01 82 16 93 07/16/17 09:00 93 Nasal Cannula 4.00 07/16/17 08:01 82 24 89 07/16/17 08:00 84 07/16/17 07:46 96 Nasal Cannula 4.00 07/16/17 07:18 78 24 117/64 (81) 96 07/16/17 07:00 94 Nasal Cannula 4.00 07/16/17 06:01 72 16 117/68 (84) 92 07/16/17 05:01 64 21 114/64 (81) 92 07/16/17 04:01 97.6 80 128/97 (107) 07/16/17 04:00 74 07/16/17 03:30 92 30 07/16/17 03:01 72 26 108/59 (75) 90 07/16/17 02:01 72 20 99/64 (76) 93 07/16/17 01:01 64 17 99/77 (84) 96 07/16/17 00:01 97.9 60 13 103/60 (74) 97 07/16/17 00:00 68 07/15/17 23:35 94 30 07/15/17 23:01 64 22 110/62 (78) 95 07/15/17 22:01 70 15 109/64 (79) 96 07/15/17 21:01 74 29 105/74 (84) 92 07/15/17 20:10 95 30 07/15/17 20:01 97.6 72 32 111/67 (82) 93 07/15/17 20:00 94 Bi-Pap 30 07/15/17 20:00 72 07/15/17 19:01 78 27 117/67 (84) 91 07/15/17 19:00 94 Nasal Cannula 4.00 07/15/17 18:00 86 31 97/55 (69) 94 07/15/17 17:00 92 Nasal Cannula 3.00 07/15/17 17:00 74 13 104/67 (79) 94 I/O 07/15/17 07/15/17 07/15/17 07/16/17 07/16/17 07/16/17 07:00 15:00 23:00 07:00 15:00 23:00 Intake Total 720 ml Output Total 750 ml 1575 ml 700 ml 1350 ml 400 ml Balance -750 ml -855 ml -700 ml -1350 ml -400 ml Intake Oral 720 ml Output Urine Total 750 ml 1575 ml 700 ml 1350 ml 400 ml # Bowel Movements 0 1 Result Diagram: 07/15/17 0532 07/15/17 0532 Other Results GENERAL: This averagely built, elderly man who is alert and anxious. HEENT: Head is normocephalic. Pupils are reactive and equal. Tongue is moist. Throat is injected. Nasal mucosa edematous.clearntion at 45 degrees. Trachea midline. No thyroid enlargement. CHEST: Equal movements with distant breath sounds, with expiratory wheezes bilaterally and a few basilar crackles. HEART: Sounds are regular, S1, S2, with no murmur. No S3 gallop. ABDOMEN: Soft, obese, without masses. No organomegaly or tenderness. Bowel sounds are active. EXTREMITIES: No lesions, but there is 2+ edema, with decreased peripheral pulses. Reflexes are 1+, with no gross motor deficits and cranial nerves are grossly intact. There is no clubbing of the extremities and no calf tenderness. SKIN: Slightly pigmented in the lower extremities. Assessment and Plan Assessment and Plan IMPRESSION: 1. Acute on chronic respiratory failure. 2. Hypercapnia with hypoxemia. 3. Chronic obstructive pulmonary disease, with severe emphysema. 4. Cor pulmonale. 5. Obstructive sleep apnea syndrome. 6. Hyperlipidemia. 7. Nicotine dependency. Plan : 1. Continue Antibiotics. 2. O2 at 3 L. 3. BIPAP at HS12/5 CM 4. Nebs q6h , Duoneb 5. Continue solumedrol 40 mg IV q8h 6. PT eval and rehab placement 7. Get a Chest Xray and ABG in am Joanna Law MD July 16, 2017 16:51
[2017-07-16] MEDS ORDERED: CHLORHEXIDINE GLUCONATE 2 % 1 PACK (2 CLOTHS)(extra cloths) TOPICAL PRN (19:30)
[2017-07-16] MEDS: ATORVASTATIN 40 MG TAB PO SCH (20:24)
[2017-07-17] VITALS (36 sets, daily range): BP systolic 103–140; BP diastolic 60–89; PULSE 58–88; RESP 12–33; TEMP 98.1–99.3; O2SAT 90–98
[2017-07-17] MEDS: methylPREDNISolone SOD SUCC 40 MG/1 ML VIAL IV PUSH SCH ×3 (00:39→18:20)
[2017-07-17] MEDS: ENOXAPARIN SODIUM 40 MG/0.4 ML SYRINGE SQ SCH (00:39)
[2017-07-17] MEDS: CHLORHEXIDINE GLUCONATE 2 % 1 PACK (2 CLOTHS)(taper/protocol) TOPICAL SCH (04:00)
[2017-07-17 04:56] LABS: AUTOMATED NEUTROPHIL # 6.8 TH/MM3 (1.8-7.7); BASOPHIL # 0.2 TH/MM3 (0-0.2); BASOPHIL % 3.1 % (0.0-2.0); HEMATOCRIT 43.8 % (39.0-51.0); HEMOGLOBIN 14.1 GM/DL (13.0-17.0); LYMPH % 7.9 % (9.0-44.0); LYMPHOCYTE # 0.6 TH/MM3 (1.0-4.8); MEAN CELL VOLUME 97.4 FL (80.0-100.0); MEAN CORPUSCULAR HEMOGLOBIN 31.5 PG (27.0-34.0); MEAN CORPUSCULAR HGB CONC 32.3 % (32.0-36.0); MEAN PLATELET VOLUME 6.8 FL (7.0-11.0); MONO % 6.8 % (0.0-8.0); MONOCYTE # 0.5 TH/MM3 (0-0.9); NEUT % 82.2 % (16.0-70.0); PLATELET COUNT 239 TH/MM3 (150-450); RED BLOOD COUNT 4.49 MIL/MM3 (4.50-5.90); WHITE BLOOD COUNT 8.1 TH/MM3 (4.0-11.0)
[2017-07-17 05:07] LABS: CALCIUM 8.9 MG/DL (8.5-10.1)
[2017-07-17 05:08] LABS: BICARBONATE 42.4 MEQ/L (21.0-32.0)
[2017-07-17 05:11] LABS: CREATININE 0.78 MG/DL (0.60-1.30)
--- NOTE | 2017-07-17 06:06 | RADRPT ---
EXAM DATE: 07/17/2017 6:03 AM EDT AGE/SEX: 77 years / Male INDICATIONS: Shortness of breath. CLINICAL DATA: This is the patient's subsequent encounter. Patient reports that signs and symptoms h ave been present for 4 - 6 days and indicates a pain score of Nonresponsive. MEDICAL/SURGICAL HISTORY: Cardiovascular disease. Chronic obstructive pulmonary disease. None. COMPARISON: [facility], CHEST SINGLE AP, 07/12/2017. . FINDINGS: Slight right lung base atelectasis and/or infiltrate is seen. Focal consolidation is not seen. Heart and mediastinum are unremarkable for technique. CONCLUSION: Slight right lung base atelectasis and/or infiltrate is seen slightly worse. Electronically signed by: Rox Gambino MD 07/17/2017 6:05 AM EDT
[2017-07-17] MEDS: RESP: ALBUTEROL 2.5 MG/IPRATROPIUM 0.5 MG NEB (SCH) NEB ×2 (07:19→11:12)
[2017-07-17] MEDS: guaiFENesin E.R. 600 MG TAB PO SCH ×2 (08:39→21:46)
[2017-07-17] MEDS: THEOPHYLLINE 200 MG EXTENDED RELEASE CAP PO SCH (08:42)
[2017-07-17] MEDS: CLOPIDOGREL 75 MG TAB PO SCH (08:42)
[2017-07-17] MEDS: LEVOFLOXACIN 750 MG TAB PO SCH (08:42)
[2017-07-17] MEDS: FUROSEMIDE 20 MG TAB PO SCH (08:43)
[2017-07-17] MEDS: BUDESONIDE-FORMOTEROL 160/4.5 MCG INHALER INH SCH ×2 (08:44→21:43)
[2017-07-17] MEDS: SODIUM CHLORIDE 0.9% FLUSH 10 ML FLUSH IV FLUSH SCH ×2 (09:00→21:46)
[2017-07-17] MEDS: TIOTROPIUM BROMIDE 18 MCG INH INH SCH (09:00)
[2017-07-17] MEDS: ASPIRIN 81 MG CHEW TAB CHEW SCH (09:00)
--- NOTE | 2017-07-17 11:30 | HHI.PR ---
Subjective Remarks Follow-up COPD exacerbation with hypercapnic respiratory failure July 14, 2017-patient seen and examined, reported improvement of shortness of breath. Patient used BiPAP overnight. ABG improving this morning. Daughter by the bedside and states her diet is doing much better. July 15, 2017-patient seen and examined, requiring BiPAP however FiO2 increased to 30. Daughter by the bedside. Patient currently afebrile July 16, 2017-patient seen and examined, did use BiPAP at night. Some improvement of shortness of breath. Patient was seen yesterday by pulmonary medicine. July 17, 2017-patient seen and examined, reports significant improvement of shortness of breath. He had a good night sleep. Case discussed with daughter Objective Vitals Vital Signs Date Time Temp Pulse Resp B/P (MAP) Pulse Ox O2 Delivery O2 Flow Rate FiO2 07/17/17 11:13 93 Nasal Cannula 3.00 07/17/17 07:50 Nasal Cannula 3.00 07/17/17 07:14 96 30 07/17/17 07:00 Bi-Pap 35 07/17/17 06:00 62 22 118/70 (86) 96 07/17/17 05:00 58 21 113/65 (81) 96 07/17/17 04:22 93 30 07/17/17 04:00 78 07/17/17 04:00 98.7 70 20 132/87 (102) 97 07/17/17 03:00 76 20 120/68 (85) 93 07/17/17 02:00 78 24 119/81 (94) 98 07/17/17 01:49 97 35 07/17/17 01:00 80 24 125/69 (87) 93 07/17/17 00:00 99.0 80 24 119/61 (80) 93 07/17/17 00:00 83 07/16/17 23:50 89 35 07/16/17 23:00 76 20 100/62 (75) 94 07/16/17 22:00 92 30 07/16/17 22:00 82 29 118/63 (81) 93 07/16/17 21:00 78 23 106/65 (79) 94 07/16/17 20:20 96 Nasal Cannula 4.00 07/16/17 20:00 78 29 114/58 (76) 93 07/16/17 20:00 84 07/16/17 19:00 99.2 77 19 113/67 (82) 95 07/16/17 19:00 96 Nasal Cannula 4.00 07/16/17 18:00 97.6 78 29 108/63 (78) 93 07/16/17 17:00 78 35 120/73 (89) 93 07/16/17 17:00 78 35 105/57 (73) 93 07/16/17 16:00 80 0 120/73 (89) 98 07/16/17 16:00 80 0 98 07/16/17 16:00 68 07/16/17 15:45 68 0 97 07/16/17 14:00 97.7 78 23 104/60 (75) 94 07/16/17 14:00 78 23 104/60 (75) 94 07/16/17 13:00 80 26 122/61 (81) 93 07/16/17 13:00 80 26 122/61 (81) 93 07/16/17 12:00 88 44 122/80 (94) 92 07/16/17 12:00 70 07/16/17 12:00 88 44 122/80 (94) 92 07/16/17 11:50 95 Nasal Cannula 4.00 07/16/17 11:42 72 24 105/67 (80) 91 I/O 07/16/17 07/16/17 07/16/17 07/17/17 07/17/17 07/17/17 06:59 14:59 22:59 06:59 14:59 22:59 Intake Total 420 ml Output Total 700 ml 1350 ml 800 ml 800 ml Balance -700 ml -1350 ml -800 ml -380 ml Intake Oral 420 ml Output Urine Total 700 ml 1350 ml 800 ml 800 ml # Bowel Movements 1 0 Result Diagram: 07/17/17 0425 07/17/17 0425 Imaging Last Impressions Chest X-Ray 07/17/17 0600 Signed Impressions: CONCLUSION: Slight right lung base atelectasis and/or infiltrate is seen slightly worse. Objective Remarks GENERAL: NAD SKIN: Warm and dry. HEAD: Normocephalic. EYES: No scleral icterus. No injection or drainage. NECK: Supple, trachea midline. No JVD or lymphadenopathy. CARDIOVASCULAR: Regular rate and rhythm without murmurs, gallops, or rubs. RESPIRATORY: Breath sounds equal bilaterally. No accessory muscle use. GASTROINTESTINAL: Abdomen soft, non-tender, nondistended. MUSCULOSKELETAL: No cyanosis, or edema. BACK: Nontender without obvious deformity. No CVA tenderness. A/P Problem List: (1) Community acquired bacterial pneumonia ICD Code: J15.9 - Unspecified bacterial pneumonia (2) Hypoxemia ICD Code: R09.02 - Hypoxemia (3) COPD with exacerbation ICD Code: J44.1 - Chronic obstructive pulmonary disease with (acute) exacerbation (4) Hypercapnic respiratory failure ICD Code: J96.92 - Respiratory failure, unspecified with hypercapnia Assessment and Plan 77-year-old man with COPD exacerbation with hypercapnic/hypoxic respiratory failure Cor Pulmonale Currently on Solu-Medrol 40 mg every 8 hour, bronchodilator ,Symbicort and Spiriva, Levaquin as well as theophylline 200 mg daily Maintain oxygen saturation above 88%-92% Continue with BiPAP at bedtime Appreciate input from pulmonary medicine Continue Acapella Repeat chest x-ray this a.m. reviewed Community-acquired bacterial pneumonia Continue with Levaquin 750 mg daily 7 days total Chronic history of CAD/hypertension/hyperlipidemia and other medical conditions Continue outpatient medications DVT prophylaxis: Bilateral SCDs Discharge Planning Likely discharge in 1 day Jimi Alexander MD July 17, 2017 11:30
--- NOTE | 2017-07-17 19:37 | HHI.PR ---
Subjective Remarks He is much better. ABG better. Leg edema is less. Using BIPAP at HS. will get home BIPAP in am. Objective Vital Signs Date Time Temp Pulse Resp B/P (MAP) Pulse Ox O2 Delivery O2 Flow Rate FiO2 07/17/17 18:00 80 29 117/68 (84) 93 07/17/17 17:00 86 33 114/74 (87) 95 07/17/17 16:00 76 23 112/70 (84) 95 07/17/17 15:00 72 30 109/65 (80) 94 07/17/17 14:00 76 25 103/60 (74) 94 07/17/17 13:00 84 29 113/62 (79) 93 07/17/17 12:06 78 25 131/68 (89) 90 07/17/17 12:00 83 07/17/17 11:13 93 Nasal Cannula 3.00 07/17/17 11:00 98.1 74 25 118/66 (83) 95 07/17/17 10:45 80 21 93 07/17/17 10:30 72 24 93 07/17/17 10:15 82 26 96 07/17/17 10:00 80 07/17/17 10:00 76 25 117/80 (92) 95 07/17/17 09:45 74 27 07/17/17 09:30 76 24 93 07/17/17 09:00 88 29 112/72 (85) 97 07/17/17 08:00 80 07/17/17 08:00 98.5 80 27 140/89 (106) 93 07/17/17 07:50 Nasal Cannula 3.00 07/17/17 07:14 96 30 07/17/17 07:00 62 20 124/66 (85) 95 07/17/17 07:00 Bi-Pap 35 07/17/17 06:00 62 22 118/70 (86) 96 07/17/17 05:00 58 21 113/65 (81) 96 07/17/17 04:22 93 30 07/17/17 04:00 78 07/17/17 04:00 98.7 70 20 132/87 (102) 97 07/17/17 03:00 76 20 120/68 (85) 93 07/17/17 02:00 78 24 119/81 (94) 98 07/17/17 01:49 97 35 07/17/17 01:00 80 24 125/69 (87) 93 07/17/17 00:00 99.0 80 24 119/61 (80) 93 07/17/17 00:00 83 07/16/17 23:50 89 35 07/16/17 23:00 76 20 100/62 (75) 94 07/16/17 22:00 92 30 07/16/17 22:00 82 29 118/63 (81) 93 07/16/17 21:00 78 23 106/65 (79) 94 07/16/17 20:20 96 Nasal Cannula 4.00 07/16/17 20:00 78 29 114/58 (76) 93 07/16/17 20:00 84 I/O 07/16/17 07/16/17 07/16/17 07/17/17 07/17/17 07/17/17 07:00 15:00 23:00 07:00 15:00 23:00 Intake Total 420 ml Output Total 700 ml 1350 ml 800 ml 800 ml 1450 ml 300 ml Balance -700 ml -1350 ml -800 ml -380 ml -1450 ml -300 ml Intake Oral 420 ml Output Urine Total 700 ml 1350 ml 800 ml 800 ml 1450 ml 300 ml # Bowel Movements 1 0 Result Diagram: 07/17/17 0425 07/17/17 0425 Objective Remarks GENERAL: This is a well-nourished, well-developed patient, in no apparent distress. CARDIOVASCULAR: Regular rate and rhythm without murmurs, gallops, or rubs. RESPIRATORY: Diffuse expiratory wheezes, diminished breath sounds bilaterally. GASTROINTESTINAL: Abdomen soft, non-tender,nondistended. Normal active bowel sounds MUSCULOSKELETAL: Extremities without clubbing, cyanosis, but has 1 + edema. NEURO: Alert & Oriented x4 to person, place, time, situation. Moves all ext x4 Assessment and Plan Assessment and Plan IMPRESSION: 1. Acute on chronic respiratory failure. 2. Hypercapnia with hypoxemia. 3. Chronic obstructive pulmonary disease, with severe emphysema. 4. Cor pulmonale. 5. Obstructive sleep apnea syndrome. 6. Hyperlipidemia. 7. Nicotine dependency. Plan : 1. Continue Antibiotics.and switch to PO 2. O2 at 3 L. 3. BIPAP at HS12/5 CM 4. Nebs q6h , Duoneb 5. D/C solumedrol and add Prednisone 20 mg BID 6. PT eval and rehab placement 7. Home in am if stable Joanna Law MD July 17, 2017 19:37
[2017-07-17] MEDS: predniSONE 20 MG TAB PO SCH (21:46)
[2017-07-17] MEDS: ATORVASTATIN 40 MG TAB PO SCH (21:46)
[2017-07-17] MEDS: LORazepam 2 MG/ML VIAL IV PUSH PRN (22:22)
[2017-07-18] VITALS (15 sets, daily range): BP systolic 109–137; BP diastolic 60–79; PULSE 67–82; RESP 12–28; TEMP 97.6–98; O2SAT 92–96
[2017-07-18] MEDS: ENOXAPARIN SODIUM 40 MG/0.4 ML SYRINGE SQ SCH (00:30)
[2017-07-18] MEDS: CHLORHEXIDINE GLUCONATE 2 % 1 PACK (2 CLOTHS)(taper/protocol) TOPICAL SCH (04:00)
[2017-07-18] MEDS ORDERED: SPIRCAP INH (07:55)
[2017-07-18] MEDS ORDERED: LEVA750T9 PO (07:55)
[2017-07-18] MEDS ORDERED: guaiFENesin ER PO (07:55)
[2017-07-18] MEDS ORDERED: VENTAER INH (07:55)
[2017-07-18] MEDS ORDERED: PRED20 PO (07:55)
[2017-07-18] MEDS ORDERED: Budeson-Formot 160-4.5 Mcg Inh INH (07:55)
[2017-07-18] MEDS ORDERED: THEO1CAP2 PO (07:55)
[2017-07-18] MEDS ORDERED: IPRA17I INH (07:55)
[2017-07-18] MEDS ORDERED: LORA-392 PO (07:55)
[2017-07-18] MEDS ORDERED: WALKER WHEELS/F1 MIS (07:58)
[2017-07-18] MEDS: BUDESONIDE-FORMOTEROL 160/4.5 MCG INHALER INH SCH (08:57)
[2017-07-18] MEDS: THEOPHYLLINE 200 MG EXTENDED RELEASE CAP PO SCH (08:58)
[2017-07-18] MEDS: LEVOFLOXACIN 750 MG TAB PO SCH (08:58)
[2017-07-18] MEDS: CLOPIDOGREL 75 MG TAB PO SCH (08:58)
[2017-07-18] MEDS: guaiFENesin E.R. 600 MG TAB PO SCH (08:58)
[2017-07-18] MEDS: TIOTROPIUM BROMIDE 18 MCG INH INH SCH (08:58)
[2017-07-18] MEDS: SODIUM CHLORIDE 0.9% FLUSH 10 ML FLUSH IV FLUSH SCH (08:59)
[2017-07-18] MEDS: ASPIRIN 81 MG CHEW TAB CHEW SCH (08:59)
[2017-07-18] MEDS: FUROSEMIDE 20 MG TAB PO SCH (08:59)
[2017-07-18] MEDS: predniSONE 20 MG TAB PO SCH (08:59)
--- NOTE | 2017-07-18 10:37 | HHI.PR ---
Subjective Remarks Follow-up COPD exacerbation with hypercapnic respiratory failure July 14, 2017-patient seen and examined, reported improvement of shortness of breath. Patient used BiPAP overnight. ABG improving this morning. Daughter by the bedside and states her diet is doing much better. July 15, 2017-patient seen and examined, requiring BiPAP however FiO2 increased to 30. Daughter by the bedside. Patient currently afebrile July 16, 2017-patient seen and examined, did use BiPAP at night. Some improvement of shortness of breath. Patient was seen yesterday by pulmonary medicine. July 17, 2017-patient seen and examined, reports significant improvement of shortness of breath. He had a good night sleep. Case discussed with daughter July 18, 2017-patient seen and examined, patient is happy about the fact that he is now has turned the corner and he is breathing better. He did use his own BiPAP last night. Looking for discharge home. Objective Vitals Vital Signs Date Time Temp Pulse Resp B/P (MAP) Pulse Ox O2 Delivery O2 Flow Rate FiO2 07/18/17 09:00 82 24 110/60 (77) 93 07/18/17 08:00 74 18 110/71 (84) 94 07/18/17 08:00 74 07/18/17 07:11 97.6 07/18/17 07:09 94 Nasal Cannula 3.00 07/18/17 07:00 94 Nasal Cannula 3.00 Humidified 07/18/17 05:12 67 16 109/65 (80) 93 07/18/17 04:19 93 30 07/18/17 04:00 76 07/18/17 04:00 97.8 82 28 115/74 (88) 93 07/18/17 03:00 82 28 112/70 (84) 92 07/18/17 02:05 96 30 07/18/17 02:00 72 24 119/76 (90) 94 07/18/17 01:00 74 12 125/78 (94) 93 07/18/17 00:00 98.0 82 12 111/79 (90) 94 07/18/17 00:00 79 07/17/17 23:00 80 22 110/78 (89) 92 07/17/17 22:25 96 30 07/17/17 22:25 91 Bi-Pap 30.00 07/17/17 22:00 80 22 120/68 (85) 90 5/29/18 21:00 80 26 108/68 (81) 91 07/17/17 20:00 78 07/17/17 20:00 99.3 78 12 111/63 (79) 90 07/17/17 20:00 92 Nasal Cannula 3.00 07/17/17 19:53 94 Nasal Cannula 3.00 07/17/17 19:00 76 24 119/67 (84) 93 07/17/17 18:00 80 29 117/68 (84) 93 07/17/17 17:00 86 33 114/74 (87) 95 07/17/17 16:00 76 23 112/70 (84) 95 07/17/17 15:00 72 30 109/65 (80) 94 07/17/17 14:00 76 25 103/60 (74) 94 07/17/17 13:00 84 29 113/62 (79) 93 07/17/17 12:06 78 25 131/68 (89) 90 07/17/17 12:00 83 07/17/17 11:13 93 Nasal Cannula 3.00 07/17/17 11:00 98.1 74 25 118/66 (83) 95 07/17/17 10:45 80 21 93 I/O 07/17/17 07/17/17 07/17/17 07/18/17 07/18/17 07/18/17 07:00 15:00 23:00 07:00 15:00 23:00 Intake Total 420 ml 240 ml Output Total 800 ml 1450 ml 300 ml 425 ml 1050 ml Balance -380 ml -1450 ml -300 ml -185 ml -1050 ml Intake Oral 420 ml 240 ml Output Urine Total 800 ml 1450 ml 300 ml 425 ml 1050 ml Stool Total 0 ml # Voids 2 # Bowel Movements 0 Result Diagram: 07/17/17 0425 07/17/17 0425 Imaging Last Impressions Chest X-Ray 07/17/17 0600 Signed Impressions: CONCLUSION: Slight right lung base atelectasis and/or infiltrate is seen slightly worse. Objective Remarks GENERAL: NAD SKIN: Warm and dry. HEAD: Normocephalic. EYES: No scleral icterus. No injection or drainage. NECK: Supple, trachea midline. No JVD or lymphadenopathy. CARDIOVASCULAR: Regular rate and rhythm without murmurs, gallops, or rubs. RESPIRATORY: Breath sounds equal bilaterally. No accessory muscle use. GASTROINTESTINAL: Abdomen soft, non-tender, nondistended. MUSCULOSKELETAL: No cyanosis, or edema. BACK: Nontender without obvious deformity. No CVA tenderness. Procedures none A/P Problem List: (1) Community acquired bacterial pneumonia ICD Code: J15.9 - Unspecified bacterial pneumonia (2) Hypoxemia ICD Code: R09.02 - Hypoxemia (3) COPD with exacerbation ICD Code: J44.1 - Chronic obstructive pulmonary disease with (acute) exacerbation Status: Resolved (4) Hypercapnic respiratory failure ICD Code: J96.92 - Respiratory failure, unspecified with hypercapnia Assessment and Plan 77-year-old man with COPD exacerbation with hypercapnic/hypoxic respiratory failure-resolved Cor Pulmonale s/p Solu-Medrol 40 mg every 8 hour, and currently on prednisone 20 mg p.o. twice daily, bronchodilator ,Symbicort and Spiriva, Levaquin as well as theophylline 200 mg daily Maintain oxygen saturation above 88%-92% Continue with BiPAP at bedtime Appreciate input from pulmonary medicine Continue Acapella Repeat x-ray July 17, 2017 was reviewed yesterday Community-acquired bacterial pneumonia Continue with Levaquin 750 mg daily 7 days total Chronic history of CAD/hypertension/hyperlipidemia and other medical conditions Continue outpatient medications DVT prophylaxis: Bilateral SCDs Discharge Planning Likely discharge in 1 day Problem Qualifiers (1) Hypercapnic respiratory failure: Qualified Codes: J96.02 - Acute respiratory failure with hypercapnia Jimi Alexander MD July 18, 2017 10:37
--- NOTE | 2017-07-18 10:41 | HHI.DS ---
Discharge Summary Admission Date July 13, 2017 at 15:07 Discharge Date: July 18, 2017 Admitting Diagnosis COPD EXACERBATION WITH HYPOXEMIA (1) Community acquired bacterial pneumonia ICD Code: J15.9 - Unspecified bacterial pneumonia (2) Hypoxemia ICD Code: R09.02 - Hypoxemia (3) COPD with exacerbation ICD Code: J44.1 - Chronic obstructive pulmonary disease with (acute) exacerbation Status: Resolved (4) Hypercapnic respiratory failure ICD Code: J96.92 - Respiratory failure, unspecified with hypercapnia Procedures none Brief History - From Admission 77-year-old male with a history of COPD, hypertension presented yesterday to the ED for evaluation of worsening symptom of shortness of breath times couple days associated with cough production's of yellow sputum over the past 2-3 days. However, patient denies any febrile episode. He was recently treated for sinus infection with a course of 5 days of antibiotics about a week ago. Patient was recently also treated for cough with Robitussin. However states he took his penicillin few days ago and may have suffered an allergic reaction to it leading to shortness of breath. Report chest pain with cough and deep inspiration. When patient initially presented to the ED, he was hypoxemic and placed on 2 L nasal cannula. Currently, patient is on 3 L of oxygen. Patient reports a previous history of tobacco, and quit 5 years ago. However he still smokes 1-2 cigars per day. He denies any GI bleed. CBC/BMP: 07/17/17 0425 07/17/17 0425 Significant Findings Laboratory Tests Test 07/16/17 19:03 07/17/17 04:25 07/17/17 09:25 Red Blood Count 4.49 MIL/MM3 (4.50-5.90) Mean Platelet Volume 6.8 FL (7.0-11.0) Neutrophils (%) (Auto) 82.2 % (16.0-70.0) Lymphocytes (%) (Auto) 7.9 % (9.0-44.0) Basophils (%) (Auto) 3.1 % (0.0-2.0) Lymphocytes # (Auto) 0.6 TH/MM3 (1.0-4.8) Blood Urea Nitrogen 20 MG/DL (7-18) Random Glucose 182 MG/DL (74-106) Chloride Level 95 MEQ/L (98-107) Carbon Dioxide Level 42.4 MEQ/L (21.0-32.0) Anion Gap 1 MEQ/L (5-15) Blood Gas HCO3 42 mmol/L (22-26) Blood Gas Base Excess 15.9 mmol/L (-2-2) Arterial Blood pH 7.36 (7.380-7.420) Arterial Blood Partial Pressure CO2 76 mmHg (38-42) Imaging Last Impressions Chest X-Ray 07/17/17 0600 Signed Impressions: CONCLUSION: Slight right lung base atelectasis and/or infiltrate is seen slightly worse. PE at Discharge GENERAL: NAD SKIN: Warm and dry. HEAD: Normocephalic. EYES: No scleral icterus. No injection or drainage. NECK: Supple, trachea midline. No JVD or lymphadenopathy. CARDIOVASCULAR: Regular rate and rhythm without murmurs, gallops, or rubs. RESPIRATORY: Breath sounds equal bilaterally. No accessory muscle use. GASTROINTESTINAL: Abdomen soft, non-tender, nondistended. MUSCULOSKELETAL: No cyanosis, or edema. BACK: Nontender without obvious deformity. No CVA tenderness. Hospital Course Patient admitted Bruce COPD exacerbation along with respiratory failure with hypoxemia and hypercapnia for which he was started on BiPAP. Treatment at a time including Solu-Medrol, bronchodilators, antibiotic and his oxygen saturation was maintained above 88%. Pulmonary medicine was consulted and patient vitals were monitored throughout hospitalization. He was continued on his treatment for other chronic medical conditions. DVT and GI prophylaxis were provided. Physical therapy was consulted. Prior to discharge, patient's condition improved and vitals remained stable. He was switched to p.o. prednisone. Patient advised to continue BiPAP at night and extensively counseled on tobacco cessation. Pt Condition on Discharge: Good Discharge Disposition: Discharge Home Discharge Time: <= 30 minutes Discharge Instructions DIET: Follow Instructions for: Heart Healthy Diet Activities you can perform: Regular-No Restrictions Follow up Referrals: PCP Follow-up - 1 Week Pulmonology New Medications: Albuterol 18 GM Inh (Ventolin Hfa 18 GM Inh) 90 Mcg/Act Aer 2 PUFF INH Q4-6H PRN for SHORTNESS OF BREATH, #1 INHALER 0 Refills Ipratropium HFA 12.9 GM Inh (Atrovent HFA 12.9 GM Inh) 17 Mcg/Actuation Aer 2 PUFF INH Q6HR PRN for SHORTNESS OF BREATH, #1 INHALER 0 Refills Lorazepam (Ativan) 0.5 Mg Tab 0.5 MG PO HS PRN for ANXIETY AND/OR AGITATION, #10 TAB 0 Refills Walker with Front Wheels (Walker with Front Wheels) 1 Mis Mis EA .XX DIRECTED, #1 0 Refills Levofloxacin (Levaquin) 750 Mg Tablet 750 MG PO DAILY for Infection, #2 MG Prednisone (Prednisone) 20 Mg Tab 20 MG PO BID for Infection, #14 TAB Theophylline ER 24 HR (Mario-24) 200 Mg Cap 200 MG PO DAILY for Breathing Treatment, #30 CAP Tiotropium Inh (Spiriva Handihaler) 18 Mcg Cap 18 MCG INH DAILY for Breathing Treatment, #30 CAP 3 Refills 1 capsule = 18 mcg [Budeson-Formot 160-4.5 Mcg Inh] () 60 PUFF AERO 1 PUFF INH Q12HR for Breathing Treatment, #1 3 Refills [guaiFENesin ER] () 600 MG TABCR 600 MG PO BID for Breathing Treatment, #20 Continued Medications: Aspirin (Aspirin) 81 Mg Chew 81 MG CHEW DAILY, TAB 0 Refills Atorvastatin (Lipitor) 40 Mg Tab 40 MG PO HS for Cholesterol Management, #30 TAB 0 Refills Clopidogrel (Plavix) 75 Mg Tab 75 MG PO DAILY for Blood Clot Prevention, #30 TAB 0 Refills Fluticasone Nasal [place] (Flonase Nasal [place]) 50 Mcg/Act [place] 50 MCG EACH NARE BID for Allergies, #1 BOTTLE 0 Refills Discontinued Medications: Albuterol 18 GM Inh (Ventolin Hfa 18 GM Inh) 90 Mcg/Act Aer 1 PUFF INH Q4H PRN for SHORTNESS OF BREATH, #1 INHALER 0 Refills Tiotropium Inh (Spiriva Handihaler) 18 Mcg Cap 18 MCG INH DAILY for COPD, #30 CAP 0 Refills 1 capsule = 18 mcg Jimi Alexander MD July 18, 2017 10:41
[2017-07-18] MEDS ORDERED: OXYGEN NAS.CANULA (11:00)
[2017-07-18] MEDS ORDERED: OXYGENDME NAS.CANULA (11:00)
== END 2017-07-18 12:53 | disposition home or self-care (01) | DRG 193 ==
LOC: PHED 21:09 → PHEDA 07-13 00:27 → PH3A 07-13 01:35 → OBSVTOIN 07-13 15:07 → PHICU 07-13 18:45
PROVIDERS: ADMIT Hospitalist; ATTEND Hospitalist
PROC: 5A09457 Assistance with Respiratory Ventilation, 24-96 Consecutive Hours, Continuous Positive Airway Pressure (ICD-10-PCS; principal; 2017-07-13)
DX: J15.9 Unspecified bacterial pneumonia (principal); J96.21 Acute and chronic respiratory failure with hypoxia; I27.81 Cor pulmonale (chronic); J96.22 Acute and chronic respiratory failure with hypercapnia; J44.1 Chronic obstructive pulmonary disease with (acute) exacerbation; J44.0 Chronic obstructive pulmonary disease with (acute) lower respiratory infection; I10 Essential (primary) hypertension; F17.290 Nicotine dependence, other tobacco product, uncomplicated; I25.10 Atherosclerotic heart disease of native coronary artery without angina pectoris; G47.33 Obstructive sleep apnea (adult) (pediatric); E78.5 Hyperlipidemia, unspecified; I25.2 Old myocardial infarction; Z95.5 Presence of coronary angioplasty implant and graft; E66.9 Obesity, unspecified; Z68.32 Body mass index [BMI] 32.0-32.9, adult
CPT/HCPCS: 36600; 71045; 80048; 80053; 81001; 82550; 82552; 82805; 83690; 83735; 83880; 84484; 85025; 85379; 85610; 85730; 87070; 87205; 87641; 93005; 94002; 94003; 94640; 94664; 94667; 94668; 96365; 96367; 96375; J0456; J1650; J2060; J2920; J2930; J3475; J7050; J7512; J7613